=== PATIENT | female | born 1945 | race Caucasian/White ===

== ENCOUNTER 2017-09-12 07:25 | Day surgery (SDC) | payer MEDICARE ==
[~2017-09-12 07:25] MED LIST: LIDOCAINE 2% INJ 100 MG/5 ML SDV (FOR ANES.) As Ordered; PROPOFOL 200 MG/20 ML VIAL As Ordered
[2017-09-12] MEDS ORDERED: NS 1,000 ML IV (07:45)
== END 2017-09-12 08:42 | disposition home or self-care (01) ==
LOC: M OPP 07:25
DX: Z12.11 Encounter for screening for malignant neoplasm of colon (principal); Z86.010 Personal history of colon polyps; D12.2 Benign neoplasm of ascending colon; D12.0 Benign neoplasm of cecum; K57.30 Diverticulosis of large intestine without perforation or abscess without bleeding; K64.8 Other hemorrhoids; I10 Essential (primary) hypertension; E78.5 Hyperlipidemia, unspecified; R01.1 Cardiac murmur, unspecified; K21.9 Gastro-esophageal reflux disease without esophagitis; M79.7 Fibromyalgia; M19.90 Unspecified osteoarthritis, unspecified site; M54.9 Dorsalgia, unspecified; G47.30 Sleep apnea, unspecified; Z79.82 Long term (current) use of aspirin; Z79.899 Other long term (current) drug therapy; Z80.0 Family history of malignant neoplasm of digestive organs
CPT/HCPCS: 45385

== ENCOUNTER → 2019-02-11 | Outpatient (REF) ==
[~2019-02-11] MED LIST changes: +AMLO2.5T3 PO; +ASPI81TA85 PO; +ATOR1TAB19 PO; +AZEL1SPR3; +BISOPROLOL-HCTZ PO; +CALCTAB7 PO; +CLON-412 PO; +DOXA8TAB2 PO; +FLUT1LOT EX; +GABA-1171 PD; +KLOR20TA42 PO; -LIDOCAINE 2% INJ 100 MG/5 ML SDV (FOR ANES.) As Ordered; +MAGNESIUM PO; +MELO7.5T7 PO; -PROPOFOL 200 MG/20 ML VIAL As Ordered; +RANI-356 PO; +VALS1TAB67 PO; +VITA2000 PO; +VITA500T PO
== END ==
LOC: M LAB LCGH 09:25
DX: Z00.00 Encounter for general adult medical examination without abnormal findings (principal)

== ENCOUNTER → 2021-02-06 | Outpatient (REF) | payer MEDICARE ==
[~2021-02-06] MED LIST changes: -ASPI81TA85 PO; +ASPI81TA86 PO; +CALC-211 PO; -CALCTAB7 PO; -KLOR20TA42 PO; +POTA-141 PO; -RANI-356 PO; +RANI-397 PO; +VITA-243 PO; -VITA500T PO
== END ==
LOC: M LAB REF 10:21
PROVIDERS: ATTEND Physician Assistant Medical
DX: R19.4 Change in bowel habit (principal)

== ENCOUNTER → 2021-02-13 | Outpatient (CLI) | payer MEDICARE ==
[~2021-02-13] MED LIST changes: +GLUCAGON INJ 1MG VIAL As Ordered ONE; +ISOVUE-370 76% 100ML VIAL As Ordered ONE; +NEULUMEX 0.1% SUSPENSION 450ML BOTTLE (FORMERLY VOLUMEN) As Ordered ONE
--- NOTE | 2021-02-13 12:27 | REP ---
INDICATION: LOWER ABD PAIN, CHANGE IN BOWEL HABITS. COMPARISON: None. TECHNIQUE: Standard helical technique after the intravenous administration of 100 cc Isovue 370 and total of 1350 cc of volumen given p.o. 0.6 mg of glucagon was given IV over 40 seconds before the intravenous contrast administration. FINDINGS: In the left lung base there is a 9 mm size pleural base nodule and more inferiorly in the CP angle there is a 1.2 cm sized pleural base nodule The liver and spleen are within normal limits. The patient is status post cholecystectomy. The pancreas, adrenal glands, and kidneys are within normal limits. The abdominal aorta and para-aortic regions are within normal limits. There is no evidence of free fluid or free air. There is no evidence of a mass or adenopathy. The bowel loops and the mesenteries appear to be within normal limits. There is no evidence of abnormal bowel wall thickening, edema, fatty infiltration. There is evidence of mild sigmoid colon diverticulosis. Incidental note is made of 2.8 cm sized cyst in the left ovary. Bone window technique throughout the exam shows chronic spinal degenerative changes with multiple air densities in multiple disc spaces consistent with vacuum phenomena from degenerative disc disease. Degenerative facet joint changes are seen bilaterally at every level. There is a grade 1 L4 upon L5 spondylolisthesis. This is secondary to degenerative facet joint change. IMPRESSION: Findings and chronic changes as described above. There is no evidence of acute disease. There is a simple cyst in the left ovary as described above. If clinically relevant follow-up with pelvic ultrasonography. Two nodules seen in the left lung lower lobe. According to the revised Fleischner society criteria diagnostic contrast-enhanced CT examination of the chest is warranted for complete evaluation. <Electronically signed by Pranay Ornelas > 02/13/21 [id number]
== END ==
LOC: M RAD 08:43
PROVIDERS: ATTEND Physician Assistant Medical
DX: R19.4 Change in bowel habit (principal); R10.30 Lower abdominal pain, unspecified; N83.202 Unspecified ovarian cyst, left side; M43.16 Spondylolisthesis, lumbar region
CPT/HCPCS: 74177; J1610; Q9967

== ENCOUNTER → 2021-11-01 | Outpatient (REF) | payer MEDICARE ==
[~2021-11-01] MED LIST changes: +DONE10TA90 PO; +ECOT81TA5 PO; +FLUT15.819; -GLUCAGON INJ 1MG VIAL As Ordered ONE; -ISOVUE-370 76% 100ML VIAL As Ordered ONE; -NEULUMEX 0.1% SUSPENSION 450ML BOTTLE (FORMERLY VOLUMEN) As Ordered ONE; +PANT40TA29 PO; +PRESCAP PO; +VITA100093 PO
[2021-11-01 12:45] LABS: APPEARANCE, URINE CLEAR (CLEAR); BACTERIA, URINE AUTO NEGATIVE (NEGATIVE); BILIRUBIN, URINE AUTO NEGATIVE (NEGATIVE); BLOOD, URINE BLOOD NEGATIVE (NEGATIVE); COLOR, URINE YELLOW (YELLOW); GLUCOSE, URINE (UA) AUTO NEGATIVE (NEGATIVE); KETONE, URINE AUTO NEGATIVE (NEGATIVE); LEUKOCYTE ESTERASE, URINE AUTO NEGATIVE (NEGATIVE); NITRITE, URINE AUTO NEGATIVE (NEGATIVE); PROTEIN, URINE AUTO NEGATIVE (NEGATIVE); RBC, URINE AUTO 2 /HPF (0-3); SPECIFIC GRAVITY URINE AUTO 1.016 (1.002-1.035); SQUAMOUS EPITHELIAL CELL UR AU 0 /HPF (0-6); UROBILINOGEN, URINE AUTO 0.2 mg/dL (0.0-2.0); WBC, URINE AUTO 0 /HPF (0-3)
[2021-11-01 12:57] LABS: BASO % 0.6 % (0.0-1.0); EOS # 0.1 10^3/uL (0.0-0.5); EOS % 2.6 % (0.0-3.0); HEMATOCRIT 44.2 % (36.0-47.0); HEMOGLOBIN 14.1 g/dl (12.0-15.5); LYMPH # 1.4 10^3/uL (1.5-5.0); LYMPH % 25.5 % (24.0-44.0); MEAN CORPUSCULAR HGB CONC 31.9 g/dl (32.0-36.5); MEAN CORPUSCULAR VOLUME 90.8 fl (80.0-96.0); MONO # 0.5 10^3/uL (0.0-0.8); MONO % 10.1 % (2.0-8.0); NEUTROPHILS # 3.3 10^3/uL (1.5-8.5); NEUTROPHILS % 60.8 % (36.0-66.0); PLATELET COUNT, AUTOMATED 200 10^3/uL (150-450); RED BLOOD COUNT 4.87 10^6/uL (4.00-5.40); WHITE BLOOD COUNT 5.4 10^3/uL (4.0-10.0)
[2021-11-01 13:25] LABS: CREATININE,RANDOM URINE 75.5 MG/DL; TOTAL PROTEIN,RANDOM URINE 15.2 MG/DL (0.0-12.0)
[2021-11-01 13:26] LABS: ALBUMIN 3.8 GM/DL (3.2-5.2); ALT/SGPT 37 U/L (12-78); BILIRUBIN,TOTAL 1.8 MG/DL (0.2-1.0); BLOOD UREA NITROGEN 19 MG/DL (7-18); CALCIUM LEVEL 9.3 MG/DL (8.8-10.2); CARBON DIOXIDE LEVEL 32 MEQ/L (21-32); CHLORIDE LEVEL 106 MEQ/L (98-107); COMPLEMENT C3 101 MG/DL (90-180); COMPLEMENT C4 34 MG/DL (10-40); CREATININE FOR GFR 0.85 MG/DL (0.55-1.30); GLOMERULAR FILTRATION RATE > 60.0 (>39); GLUCOSE, FASTING 96 MG/DL (70-100); POTASSIUM SERUM 3.9 MEQ/L (3.5-5.1); SODIUM LEVEL 142 MEQ/L (136-145); TOTAL PROTEIN 7.1 GM/DL (6.4-8.2)
[2021-11-01 13:35] LABS: ERYTHROCYTE SEDIMENTATION RATE 10 mm/hr (0-30)
[2021-11-01 13:43] LABS: TOTAL 25(OH) VITAMIN D 74.2 NG/ML (30.0-100.0)
[2021-11-01 14:24] LABS: HEPATITIS B CORE ANTIBODY IGM NEGATIVE (NEGATIVE); HEPATITIS C VIRUS ABY INDEX 0.1 INDEX (<0.8)
[2021-11-01 14:26] LABS: HEPATITIS B SURFACE ANTIGEN POSITIVE (NEGATIVE)
== END ==
LOC: M SFHCRHEU 09:07
PROVIDERS: ATTEND Internal Medicine Rheumatology
DX: R76.8 Other specified abnormal immunological findings in serum (principal); H04.123 Dry eye syndrome of bilateral lacrimal glands; M35.3 Polymyalgia rheumatica; L65.9 Nonscarring hair loss, unspecified; Z79.82 Long term (current) use of aspirin; Z79.899 Other long term (current) drug therapy

== ENCOUNTER → 2021-11-01 | Outpatient (CLI) | payer MEDICARE | LOC: M LABSMTC 09:38 | PROVIDERS: ATTEND Anesthesiology | DX: Z01.818 Encounter for other preprocedural examination (principal); Z11.52 Encounter for screening for COVID-19 ==